=== PATIENT | female | born 2000 | race Hispanic/Latino ===

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

== ENCOUNTER 2020-01-04 10:51 | Emergency (ER) | payer MEDICAID, OTHER ==
[~2020-01-04 10:51] MED LIST: D ME PO; LEVO750T46 PO
== END 2020-01-04 11:05 | disposition home or self-care (01) ==
LOC: EDH 10:51
DX: L01.00 Impetigo, unspecified (principal)